=== PATIENT | female | born 1950 | race Caucasian/White ===

== ENCOUNTER 2020-07-21 15:46 | Emergency (ER) | payer MEDICARE, BC ==
[~2020-07-21] VITALS: Ht 170.2 cm; Wt 74.0 kg
--- NOTE | 2020-07-21 16:00 | NUR ---
PT REPORTS INCREASE IN PALPITATIONS AFTER STARTING ESCITALOPRAM YESTERDAY. STATES SHE ONLY TOOK 1 5MG PILL. REPORTS HX OF ANXIETY BUT NO CARDIAC HX. AT BS.
--- NOTE | 2020-07-21 16:00 | NUR ---
PT ON ALL MONITORS, HR SR 80s-90s.
--- NOTE | 2020-07-21 16:10 | NUR ---
ERP AT BS.
[2020-07-21] MEDS ORDERED: DEXAMETHASONE 4 MG TABLET PO ONE (16:30)
[2020-07-21] MEDS ORDERED: ESCI5TAB PO (16:40)
[2020-07-21] MEDS ORDERED: ATOR20TA37 PO (16:40)
[2020-07-21 16:59] LABS: BASOPHILS % (AUTO) 1 % (0-1); EOSINOPHILS % (AUTO) 1 % (1-7); LYMPHOCYTES % (AUTO) 19 % (22-44); MEAN CORPUSCULAR HEMOGLOBIN 31.9 pg (27.0-34.8); MEAN CORPUSCULAR HGB CONC 34.1 g/dL (32.4-35.8); MEAN PLATELET VOLUME 7.9 fL (7.4-10.4); MONOCYTES % (AUTO) 9 % (2-9); NEUTROPHILS % (AUTO) 70 % (42-75); PLATELET COUNT 355 x10^3/uL (130-400); RED CELL DISTRIBUTION WIDTH 12.3 % (9.6-15.2)
[2020-07-21 17:03] LABS: MD NO
[2020-07-21 17:11] LABS: ALBUMIN 4.3 g/dL (3.4-5.0); ANION GAP 6 mmol/L (5-15); CHLORIDE 103 mmol/L (98-107); CREATININE 0.77 mg/dL (0.55-1.02)
--- NOTE | 2020-07-21 17:27 | NUR ---
PT AMBULATED TO BR WITHOUT DIFFICULTY. VSS. NO DISTRESS AT THIS TIME. PT REPORTS SHE HASN'T BEEN FEELING ANY PALPITATIONS RECENTLY.
[2020-07-21 17:32] LABS: FREE T4 (FREE THYROXINE) 1.15 ng/dL (0.76-1.46); TROPONIN I < 0.015 ng/mL (0.000-0.045)
[2020-07-21 19:10] VITALS: BP 154/86
--- NOTE | 2020-07-21 19:10 | NUR ---
ERP WAS IN FOR RECHECK.
--- NOTE | 2020-07-21 19:25 | NUR ---
ERP AT BS.
--- NOTE | 2020-07-21 19:28 | NUR ---
D/C INSTRUCTIONS & F/U APPT'S RV'WD WITH PT, SHE VERBALIZES UNDERSTANDING. DRAFTING ENGINEER TO CALL PT RE: HOLTER MONITOR. INSTRUCTED PT TO RETURN TO ED FOR INCREASE IN PALPITATIONS, CHEST PAIN, SOB OR OTHER CONCERNING SYMPTOMS. PT AMBULATED OUT OF ED WITH WITHOUT DIFFICULTY.
== END 2020-07-21 19:29 | disposition home or self-care (01) ==
LOC: ED 16:44
DX: R00.2 Palpitations (principal); R07.89 Other chest pain; R00.0 Tachycardia, unspecified; F41.9 Anxiety disorder, unspecified; E78.00 Pure hypercholesterolemia, unspecified
CPT/HCPCS: 36415; 71045; 80048; 82040; 84439; 84443; 84484; 85025; 93005; 99285